=== PATIENT | female | born 1950 | race Caucasian/White ===

== ENCOUNTER 2018-06-27 12:11 | Emergency (ER) | payer MEDICARE ==
[~2018-06-27] VITALS: Ht 167.6 cm; Wt 97.5 kg
--- NOTE | 2018-06-27 12:51 | NUR ---
[place] AT BEDSIDE FOR MSE.
[2018-06-27] MEDS ORDERED: ALPR0.255 PO (13:05)
[2018-06-27] MEDS ORDERED: ESOM40CA PO (13:05)
[2018-06-27] MEDS ORDERED: MELO-107 PO (13:05)
[2018-06-27] MEDS ORDERED: OXYC15TA2 PO (13:05)
[2018-06-27] MEDS ORDERED: CETI-194 PO (13:05)
[2018-06-27] MEDS ORDERED: AMLO5TAB9 PO (13:05)
[2018-06-27] MEDS ORDERED: BUSP15TA3 PO (13:05)
[2018-06-27] MEDS ORDERED: DULO60CA45 PO (13:05)
[2018-06-27] MEDS ORDERED: LEVO25TA9 PO (13:05)
[2018-06-27] MEDS ORDERED: CYCL10TA9 PO (13:05)
[2018-06-27] MEDS ORDERED: APIX5TAB4 PO (13:05)
[2018-06-27] MEDS ORDERED: LISI-603 PO (13:05)
[2018-06-27] MEDS ORDERED: METF-440 PO (13:05)
--- NOTE | 2018-06-27 13:53 | NUR ---
Patient discharged to home in stable conditon. Written and verbal after care instructions given. Patient verbalizes understanding of instructions. ALL BELONGINGS W/ PT. PT SELF-AMBULATED W/O DIFFICULTY.
[2018-06-27 13:54] VITALS: BP 166/78
== END 2018-06-27 13:54 | disposition home or self-care (01) ==
LOC: ER 12:11
DX: H61.22 Impacted cerumen, left ear (principal); I25.10 Atherosclerotic heart disease of native coronary artery without angina pectoris; I48.91 Unspecified atrial fibrillation; E11.9 Type 2 diabetes mellitus without complications; Z88.1 Allergy status to other antibiotic agents; Z88.8 Allergy status to other drugs, medicaments and biological substances; Z79.899 Other long term (current) drug therapy
CPT/HCPCS: A4663